=== PATIENT | female | born 1995 | race Caucasian/White ===

== ENCOUNTER 2016-11-29 16:44 | Emergency (ER) | payer SELFPAY ==
[~2016-11-29] VITALS: Ht 160 cm; Wt 78.0 kg
[~2016-11-29 16:44] MED LIST: AMOXICILLIN500 MG PO; AMOXIL500 MG OR; ELIMITE5 % EX; NAPROSYN250 MG PO; NAPROSYN500 MG PO; ZITHROMAX250 MG PO; ZOFRAN ODT4 MG OR
[2016-11-29] MEDS ORDERED: MOTRIN800 MG PO (17:20)
[2016-11-29 17:43] VITALS: BP 140/98
== END 2016-11-29 17:49 | disposition home or self-care (01) | DRG 558 ==
LOC: ED 16:44
DX: M77.9 Enthesopathy, unspecified (principal); M25.432 Effusion, left wrist; M79.632 Pain in left forearm

== ENCOUNTER 2018-03-03 12:16 | Emergency (ER) | payer MEDICAID ==
[~2018-03-03] VITALS: Ht 160 cm; Wt 82.7 kg
[~2018-03-03 12:16] MED LIST changes: +MOTRIN800 MG PO
[2018-03-03] MEDS ORDERED: PRENATA4 PO (12:26)
[2018-03-03] MEDS ORDERED: FOLIC ACID1 MG PO (12:27)
[2018-03-03 13:13] LABS: HEMATOCRIT 36.5 % (37.0-47.0); HEMOGLOBIN 12.3 g/dl (12.0-16.0); IMMATURE GRANULOCYTES 0.8 % (0.0-5.0); MEAN CELL VOLUME 85.7 fL CALC (80.0-100.0); MEAN CORPUSCULAR HGB 28.9 pG CALC (26.0-32.0); MEAN CORPUSCULAR HGB CONC 33.7 g/L CALC (32.0-36.0); NEUT# 7.68 thou/uL (2.00-7.15); RED BLOOD COUNT 4.26 mill/uL (4.20-5.60); RED CELL DISTRI WIDTH 12.9 % (11.5-15.5)
[2018-03-03 13:14] LABS: URINE BILIRUBIN - DIPSTICK NEGATIVE (NEGATIVE); URINE BLOOD DIPSTICK NEGATIVE (NEGATIVE); URINE COLOR YELLOW; URINE GLUCOSE - DIPSTICK NEGATIVE (NEGATIVE); URINE KETONE NEGATIVE (NEGATIVE); URINE LEUK ESTERASE TRACE (NEGATIVE); URINE NITRITE - DIPSTICK NEGATIVE (Negative); URINE PH 7.5 (4.5-8.0); URINE PROTEIN - DIPSTICK 30 mg/dL (NEG-TRACE); URINE SPECIFIC GRAVITY 1.015; URINE UROBILINOGEN - DIPSTICK 0.2 E.U./dL (0.2)
[2018-03-03 13:15] LABS: URINE CLARITY HAZY; URINE RBC 0-2 RBC/hpf (0-5)
[2018-03-03 13:16] LABS: URINE EPITHELIAL CELLS MODERATE EPI/hpf (0-FEW)
[2018-03-03 13:38] LABS: ALBUMIN 3.7 g/dL (3.2-5.0); ALKALINE PHOSPHATASE 96 u/l (38-126); ANION GAP 16 (6-22 (CALC)); BILIRUBIN, TOTAL 0.3 mg/dL (0.0-1.4); BUN 10 mg/dL (7-17); BUN/CREATININE RATIO 19 (12-20 (CALC)); CARBON DIOXIDE 19 mmol/l (22-30); CHLORIDE 105 mmol/l (95-108); CREATININE 0.5 mg/dL (0.5-1.0); GFR > 60 ML/MIN (>=60 (CALC)); GFR FOR AFR.AMER. > 60 ML/MIN (>=60 (CALC)); LIPASE 73 u/l (23-300); POTASSIUM 4.3 mmol/l (3.5-5.1); SGOT/AST 12 u/l (14-36); SGPT/ALT 18 u/l (9-52); SODIUM 136 mmol/l (137-146)
[2018-03-03 13:59] VITALS: BP 137/67
== END 2018-03-03 14:39 | disposition home or self-care (01) ==
LOC: ED 12:16
DX: O21.9 Vomiting of pregnancy, unspecified (principal); Z3A.27 27 weeks gestation of pregnancy; R11.0 Nausea; R10.13 Epigastric pain

== ENCOUNTER 2018-03-31 23:25 | Emergency (ER) | payer OTHER, MEDICAID ==
[~2018-03-31] VITALS: Ht 157.5 cm; Wt 85.6 kg
[~2018-03-31 23:25] MED LIST changes: +FOLIC ACID1 MG PO; +PRENATA4 PO
[2018-04-01 01:05] VITALS: BP 117/73
== END 2018-04-01 01:05 | disposition home or self-care (01) | DRG 392 ==
LOC: ED 23:25
DX: R10.12 Left upper quadrant pain (principal); Z33.1 Pregnant state, incidental; V40.5XXA Car driver injured in collision with pedestrian or animal in traffic accident, initial encounter

== ENCOUNTER 2018-11-10 13:26 | Emergency (ER) | payer OTHER ==
[~2018-11-10] VITALS: Ht 157.5 cm; Wt 63.6 kg
[2018-11-10 14:42] VITALS: BP 119/79
== END 2018-11-10 14:42 | disposition home or self-care (01) | DRG 563 ==
LOC: ED 13:26
DX: S46.912A Strain of unspecified muscle, fascia and tendon at shoulder and upper arm level, left arm, initial encounter (principal); S20.212A Contusion of left front wall of thorax, initial encounter; V43.62XA Car passenger injured in collision with other type car in traffic accident, initial encounter; Y92.413 State road as the place of occurrence of the external cause; Y93.I9 Activity, other involving external motion; R07.81 Pleurodynia

== ENCOUNTER 2018-12-17 10:58 | Emergency (ER) | payer SELFPAY ==
[~2018-12-17] VITALS: Ht 157.5 cm; Wt 77.0 kg
[2018-12-17 11:23] LABS: URINE BILIRUBIN - DIPSTICK NEGATIVE (NEGATIVE); URINE BLOOD DIPSTICK LARGE (NEGATIVE); URINE COLOR YELLOW; URINE GLUCOSE - DIPSTICK NEGATIVE (NEGATIVE); URINE KETONE NEGATIVE (NEGATIVE); URINE NITRITE - DIPSTICK NEGATIVE (Negative); URINE PROTEIN - DIPSTICK 30 mg/dL (NEG-TRACE); URINE SPECIFIC GRAVITY >=1.030; URINE UROBILINOGEN - DIPSTICK 0.2 E.U./dL (0.2)
[2018-12-17 11:57] LABS: HEMATOCRIT 41.4 % (37.0-47.0); HEMOGLOBIN 13.1 g/dl (12.0-16.0); IMMATURE GRANULOCYTES 0.4 % (0.0-5.0); MEAN CELL VOLUME 86.4 fL CALC (80.0-100.0); MEAN CORPUSCULAR HGB 27.3 pG CALC (26.0-32.0); MEAN CORPUSCULAR HGB CONC 31.6 g/L CALC (32.0-36.0); NEUT# 6.17 thou/uL (2.00-7.15); RED BLOOD COUNT 4.79 mill/uL (4.20-5.60); RED CELL DISTRI WIDTH 13.6 % (11.5-15.5)
[2018-12-17 12:29] LABS: URINE LEUK ESTERASE SMALL (NEGATIVE)
[2018-12-17 12:39] LABS: URINE RBC TNTC RBC/hpf (0-5); URINE SQUAMOUS EPITHELIAL CELL FEW EPI/hpf (0-FEW)
[2018-12-17 13:09] LABS: ALBUMIN 4.2 g/dL (3.2-5.0); ALKALINE PHOSPHATASE 75 u/l (38-126); ANION GAP 15 (6-22 (CALC)); BILIRUBIN, TOTAL 0.2 mg/dL (0.0-1.4); BUN 16 mg/dL (7-17); BUN/CREATININE RATIO 25 (12-20 (CALC)); CHLORIDE 106 mmol/l (95-108); CREATININE 0.6 mg/dL (0.5-1.0); GFR > 60 ML/MIN (>=60 (CALC)); GFR FOR AFR.AMER. > 60 ML/MIN (>=60 (CALC)); LIPASE 53 u/l (23-300); POTASSIUM 4.7 mmol/l (3.5-5.1); SGOT/AST 15 u/l (14-36); SODIUM 141 mmol/l (137-146); TOTAL PROTEIN 7.3 g/dL (6.3-8.2)
[2018-12-17 13:10] LABS: CARBON DIOXIDE 25 mmol/l (22-30)
[2018-12-17] MEDS ORDERED: CEPHALEXIN500 M1 PO (15:23)
[2018-12-17 15:48] VITALS: BP 138/79
== END 2018-12-17 15:55 | disposition home or self-care (01) | DRG 690 ==
LOC: ED 10:58
PROVIDERS: Family Medicine
DX: N39.0 Urinary tract infection, site not specified (principal); B96.20 Unspecified Escherichia coli [E. coli] as the cause of diseases classified elsewhere; F17.210 Nicotine dependence, cigarettes, uncomplicated
CPT/HCPCS: Q9967

== ENCOUNTER 2020-09-07 17:57 | Emergency (ER) | payer MEDICAID ==
[~2020-09-07] VITALS: Ht 157.5 cm; Wt 78.0 kg
[~2020-09-07 17:57] MED LIST changes: +CEPHALEXIN500 M1 PO
[2020-09-07 20:01] LABS: HEMATOCRIT 35.8 % (37.0-47.0); HEMOGLOBIN 11.6 g/dl (12.0-16.0); IMMATURE GRANULOCYTES 0.6 % (0.0-5.0); MEAN CELL VOLUME 84.8 fL CALC (80.0-100.0); MEAN CORPUSCULAR HGB 27.5 pG CALC (26.0-32.0); MEAN CORPUSCULAR HGB CONC 32.4 g/dL CAL (32.0-36.0); NEUT# 6.96 thou/uL (2.00-7.15); RED BLOOD COUNT 4.22 mill/uL (4.20-5.60); RED CELL DISTRI WIDTH 13.8 % (11.5-15.5)
[2020-09-07 20:17] LABS: ALBUMIN 3.6 g/dL (3.2-5.0); ALKALINE PHOSPHATASE 67 u/l (38-126); ANION GAP 12 (6-22 (CALC)); BILIRUBIN, TOTAL 0.2 mg/dL (0.0-1.4); BUN 9 mg/dL (7-17); BUN/CREATININE RATIO 16 (12-20 (CALC)); CARBON DIOXIDE 23 mmol/l (22-30); CHLORIDE 103 mmol/l (95-108); CREATININE 0.5 mg/dL (0.5-1.0); GFR > 60 ML/MIN (>=60 (CALC)); GFR FOR AFR.AMER. > 60 ML/MIN (>=60 (CALC)); POTASSIUM 4.1 mmol/l (3.5-5.1); SGOT/AST 14 u/l (14-36); SODIUM 134 mmol/l (137-146); TOTAL PROTEIN 6.7 g/dL (6.3-8.2)
[2020-09-07 20:25] LABS: URINE BILIRUBIN - DIPSTICK NEGATIVE (NEGATIVE); URINE BLOOD DIPSTICK NEGATIVE (NEGATIVE); URINE COLOR YELLOW; URINE GLUCOSE - DIPSTICK NEGATIVE (NEGATIVE); URINE KETONE NEGATIVE (NEGATIVE); URINE LEUK ESTERASE NEGATIVE (NEGATIVE); URINE NITRITE - DIPSTICK NEGATIVE (Negative); URINE PH 6.5 (4.5-8.0); URINE PROTEIN - DIPSTICK NEGATIVE (NEG-TRACE); URINE UROBILINOGEN - DIPSTICK 0.2 E.U./dL (0.2)
[2020-09-07 21:20] VITALS: BP 122/57
== END 2020-09-07 21:20 | disposition home or self-care (01) ==
LOC: ED 17:57
DX: O9A.212 Injury, poisoning and certain other consequences of external causes complicating pregnancy, second trimester (principal); S30.1XXA Contusion of abdominal wall, initial encounter; S00.83XA Contusion of other part of head, initial encounter; S50.312A Abrasion of left elbow, initial encounter; O99.332 Smoking (tobacco) complicating pregnancy, second trimester; F17.200 Nicotine dependence, unspecified, uncomplicated; W01.0XXA Fall on same level from slipping, tripping and stumbling without subsequent striking against object, initial encounter; Y92.009 Unspecified place in unspecified non-institutional (private) residence as the place of occurrence of the external cause; Z3A.25 25 weeks gestation of pregnancy

== ENCOUNTER 2021-09-22 15:10 | Emergency (ER) | payer MEDICAID ==
[~2021-09-22] VITALS: Ht 157.5 cm; Wt 68.0 kg
[2021-09-22] MEDS ORDERED: KEFLEX500 MG PO (16:33)
[2021-09-22 17:10] VITALS: BP 138/75
== END 2021-09-22 17:10 | disposition home or self-care (01) ==
LOC: ED 15:10
DX: R23.8 Other skin changes (principal); F17.210 Nicotine dependence, cigarettes, uncomplicated

== ENCOUNTER 2022-05-02 09:29 | Emergency (ER) | payer MEDICAID ==
[~2022-05-02] VITALS: Ht 157.5 cm; Wt 77.1 kg
[~2022-05-02 09:29] MED LIST changes: +KEFLEX500 MG PO
[2022-05-02 09:34] VITALS: BP 124/83
[2022-05-02 09:54] LABS: HEMATOCRIT 40.5 % (37.0-47.0); HEMOGLOBIN 13.4 g/dl (12.0-16.0); IMMATURE GRANULOCYTES 0.4 % (0.0-5.0); MEAN CELL VOLUME 83.5 fL CALC (80.0-100.0); MEAN CORPUSCULAR HGB 27.6 pG CALC (26.0-32.0); MEAN CORPUSCULAR HGB CONC 33.1 g/dL CAL (32.0-36.0); NEUT# 3.59 thou/uL (2.00-7.15); RED BLOOD COUNT 4.85 mill/uL (4.20-5.60); RED CELL DISTRI WIDTH 13.3 % (11.5-15.5)
[2022-05-02 10:00] VITALS: BP 112/77
[2022-05-02 10:14] LABS: ALKALINE PHOSPHATASE 66 u/l (38-126); BILIRUBIN, TOTAL 0.2 mg/dL (0.0-1.4); BUN 13 mg/dL (7-17); BUN/CREATININE RATIO 19 (12-20 (CALC)); CARBON DIOXIDE 19 mmol/l (22-30); CREATININE 0.7 mg/dL (0.5-1.0); GFR FOR AFR.AMER. > 60 ML/MIN (>=60 (CALC)); GFR OTHER RACES > 60 ML/MIN (>=60 (CALC)); POTASSIUM 3.7 mmol/l (3.5-5.1); SGOT/AST 20 u/l (14-36); SODIUM 138 mmol/l (137-146)
[2022-05-02 10:28] LABS: ALBUMIN 4.6 g/dL (3.2-5.0)
[2022-05-02 10:30] VITALS: BP 118/71
[2022-05-02 10:42] LABS: ANION GAP 20 (6-22 (CALC)); CHLORIDE 103 mmol/l (95-108)
[2022-05-02 10:51] LABS: URINE BILIRUBIN - DIPSTICK NEGATIVE (NEGATIVE); URINE BLOOD DIPSTICK NEGATIVE (NEGATIVE); URINE COLOR YELLOW; URINE GLUCOSE - DIPSTICK NEGATIVE (NEGATIVE); URINE KETONE NEGATIVE (NEGATIVE); URINE LEUK ESTERASE NEGATIVE (NEGATIVE); URINE PROTEIN - DIPSTICK NEGATIVE (NEG-TRACE); URINE SPECIFIC GRAVITY >=1.030; URINE UROBILINOGEN - DIPSTICK 0.2 E.U./dL (0.2)
[2022-05-02 10:54] LABS: URINE NITRITE - DIPSTICK NEGATIVE (Negative)
[2022-05-02 11:00] VITALS: BP 112/75
[2022-05-02] MEDS ORDERED: AMOX/K CLAV875 M1 PO (11:22)
[2022-05-02 11:30] VITALS: BP 117/79
[2022-05-02 11:42] VITALS: BP 117/79
== END 2022-05-02 12:00 | disposition home or self-care (01) ==
LOC: ED 09:29
PROVIDERS: Family Medicine
DX: J02.9 Acute pharyngitis, unspecified (principal); N93.9 Abnormal uterine and vaginal bleeding, unspecified; F17.200 Nicotine dependence, unspecified, uncomplicated; Z20.822 Contact with and (suspected) exposure to COVID-19

== ENCOUNTER 2023-02-17 17:08 | Emergency (ER) | payer MEDICAID ==
[2023-02-17] VITALS (7 sets, daily range): BP systolic 105–129; BP diastolic 70–80
[~2023-02-17] VITALS: Ht 157.5 cm; Wt 88.0 kg
[~2023-02-17 17:08] MED LIST changes: +AMOX/K CLAV875 M1 PO
[2023-02-17 17:45] LABS: BASO% 0.2 % (0-3); EOS% 0.7 % (0-8); HEMATOCRIT 39.6 % (37.0-47.0); HEMOGLOBIN 12.7 g/dl (12.0-16.0); IMMATURE GRANULOCYTES 0.3 % (0.0-5.0); LYMPH% 19.2 % (15-41); MEAN CELL VOLUME 85.5 fL CALC (80.0-100.0); MEAN CORPUSCULAR HGB 27.4 pG CALC (26.0-32.0); MEAN CORPUSCULAR HGB CONC 32.1 g/dL CAL (32.0-36.0); MONO% 4.6 % (2-13); NEUT# 8.07 thou/uL (2.00-7.15); RED BLOOD COUNT 4.63 mill/uL (4.20-5.60); RED CELL DISTRI WIDTH 12.9 % (11.5-15.5)
[2023-02-17 17:52] LABS: ALBUMIN 4.1 g/dL (3.2-5.0); ALKALINE PHOSPHATASE 72 u/l (38-126); ANION GAP 14 (6-22 (CALC)); BILIRUBIN, TOTAL 0.4 mg/dL (0.02-1.3); BUN 19 mg/dL (7-17); BUN/CREATININE RATIO 22 (12-20 (CALC)); CARBON DIOXIDE 21 mmol/l (22-30); CHLORIDE 110 mmol/l (95-108); CPK 64 u/l (30-135); CREATININE 0.9 mg/dL (0.5-1.0); GFR FOR AFR.AMER. > 60 ML/MIN (>=60 (CALC)); GFR OTHER RACES > 60 ML/MIN (>=60 (CALC)); POTASSIUM 4.1 mmol/l (3.5-5.1); SGOT/AST 23 u/l (14-36); SODIUM 140 mmol/l (137-146)
== END 2023-02-17 19:28 | disposition home or self-care (01) ==
LOC: ED 17:08
PROVIDERS: Family Medicine
DX: R53.83 Other fatigue (principal); E86.0 Dehydration; F17.200 Nicotine dependence, unspecified, uncomplicated

== ENCOUNTER 2024-10-15 08:21 | Emergency (ER) | payer SELFPAY ==
[~2024-10-15] VITALS: Ht 157.5 cm; Wt 90.0 kg
[2024-10-15 08:34] VITALS: BP 138/88
[2024-10-15] MEDS ORDERED: METHOCARBAMOL 500 MG/TAB PO ONE (09:05)
[2024-10-15] MEDS ORDERED: KETOROLAC TROMETHAMINE 30 MG/ML SDV IM ONE (09:05)
[2024-10-15] MEDS ORDERED: MORPHINE SULFATE 4 MG/ML VIAL IV ONE (10:25)
[2024-10-15] MEDS ORDERED: ONDANSETRON 4 MG/TAB ODT PO ONE (10:30)
[2024-10-15 10:36] VITALS: BP 99/65
[2024-10-15 10:46] VITALS: BP 101/58
[2024-10-15] MEDS ORDERED: HYDROCO/APAP1 TA9 PO (11:09)
[2024-10-15] MEDS ORDERED: EC-NAPROXEN500 MG PO (11:09)
[2024-10-15 11:14] VITALS: BP 101/58
== END 2024-10-15 11:21 | disposition home or self-care (01) | DRG 552 ==
LOC: ED 08:21
DX: M51.379 Other intervertebral disc degeneration, lumbosacral region without mention of lumbar back pain or lower extremity pain (principal)